=== PATIENT | female | born 1945 | race Caucasian/White ===

== ENCOUNTER 2018-08-22 18:52 | Emergency (ER) | payer BC, MEDICARE ==
--- NOTE | 2018-08-22 19:58 | Emergency Department Record ---
History of Present Illness - General Chief complaint: Abscess Stated complaint: RT ANKLE PAIN Time Seen by Provider: 08/22/18 19:42 Source: Patient Mode of Arrival: Ambulatory Limitations: No limitations - History of Present Illness Initial comments: pt has had redness and soreness of ankle for 11 days that is getting progressively worse. she went to her pcp and was told it was vascular and is scheduled to see a vascular surgeon in a week. meanwhile it is getting worse and pt is having increased pain and difficulty walking. pt had a similar episode 2 yrs ago on the same area MD complaint: Lesion, Rash Onset/Timin -: Days(s) Hx Tetanus Toxoid Vaccination: Yes Year of Tetanus Vaccination: unsure Location: LLE Severity: Moderate Severity scale (1-10): 7 Quality: Aching Consistency: Constant, Getting worse Improves with: None Worsens with: None Treatments Prior to Arrival: None - Related Data Home Medications Medication Instructions Recorded Confirmed Last Taken Darifenacin Hydrobromide 7.5 mg PO DAILY 08/22/18 08/22/18 Unknown [Darifenacin ER] Duloxetine HCl [Cymbalta] 30 mg PO DAILY 08/22/18 08/22/18 Unknown Previous Rx's Medication Instructions Recorded Amoxicillin/Potassium Clav 1 tab PO BID #20 tab 08/22/18 [Augmentin 875-125 Tablet] Hydrocodone/Acetaminophen [[place] 1 each PO Q8HR #7 tablet 08/22/18 5-325 Tablet] Allergies Allergy/AdvReac Type Severity Reaction Status Date / Time adhesive tape Allergy Intermediate RASH Verified 12/24/15 17:02 hydromorphone HCl Allergy Intermediate VOMITING Verified 12/24/15 17:02 [From Dilaudid] Gsjsjrv-Dkb-Pio Reductase Allergy Intermediate HIVES Verified 12/24/15 17:02 Inhibitor Sulfa (Sulfonamide Allergy Intermediate HIVES Verified 12/24/15 17:02 Antibiotics) clindamycin Allergy HIVES Verified 08/22/18 19:57 Travel Screening - Travel/Exposure Within Last 30 Days Have you traveled within the last 30 days?: No Review of Systems Reviewed: No additional complaints except as noted below Constitutional: Reports: As per HPI. Denies: Chills, Fever, Malaise, Night sweats, Weakness, Weight change Eyes: Reports: As per HPI. Denies: Eye discharge, Eye pain, Photophobia, Vision change ENT: Reports: As per HPI. Denies: Congestion, Dental pain, Ear pain, Epistaxis , Hearing loss, Throat pain Respiratory: Reports: As per HPI. Denies: Cough, Dyspnea, Hemoptysis, Stridor, Wheezes Cardiovascular: Reports: As per HPI. Denies: Arrhythmia, Chest pain, Dyspnea on exertion, Edema, Murmurs, Orthopnea, Palpitations, Paroxysmal nocturnal dyspnea, Rheumatic Fever, Syncope Endocrine: Reports: As per HPI. Denies: Fatigue, Heat or cold intolerance, Polydipsia, Polyuria Gastrointestinal: Reports: As per HPI. Denies: Abdominal pain, Constipation, Diarrhea, Hematemesis, Hematochezia, Melena, Nausea, Vomiting Genitourinary: Reports: As per HPI. Denies: Abnormal menses, Discharge, Dyspareunia, Dysuria, Frequency, Hematuria, Incontinence, Retention, Urgency Musculoskeletal: Reports: As per HPI. Denies: Arthralgia, Back pain, Gout, Joint swelling, Myalgia, Neck pain Skin: Reports: As per HPI. Denies: Bruising, Change in color, Change in hair/ nails, Lesions, Pruritus, Rash Neurological: Reports: As per HPI. Denies: Abnormal gait, Confusion, Headache, Numbness, Paresthesias, Seizure, Tingling, Tremors, Vertigo, Weakness Psychiatric: Reports: As per HPI. Denies: Anxiety, Auditory hallucinations, Depression, Homicidal thoughts, Suicidal thoughts, Visual hallucinations Hematological/Lymphatic: Reports: As per HPI. Denies: Anemia, Blood Clots, Easy bleeding, Easy bruising, Swollen glands Past Medical History - SOCIAL HISTORY Smoking Status: Never smoker Alcohol Use: None Drug Use: None - RESPIRATORY Hx Respiratory Disorders: No - CARDIOVASCULAR Hx Cardio Disorders: Yes Hx Irregular Heartbeat: Yes (a-) - NEURO Hx Neuro Disorders: Yes Hx CVA: Yes (2009) - GI Hx GI Disorders: Yes Hx Reflux: Yes Hx Rectal Bleeding: Yes Hx Ulcer: Yes - Hx Genitourinary Disorders: Yes Hx Bladder Problem: Yes - ENDOCRINE Hx Endocrine Disorders: Yes Hx Diabetes: No Hx Thyroid Disease: Yes - MUSCULOSKELETAL Hx Musculoskeletal Disorders: Yes Hx Arthritis: Yes - PSYCH Hx Psych Problems: No - HEMATOLOGY/ONCOLOGY Hx Hematology/Oncology Disorders: Yes Hx Anemia: Yes Hx Cancer: Yes (breast) Family Medical History Any Significant Family History?: No Physical Exam - General General Appearance: Alert, Oriented x3, Cooperative, Mild distress - Head Head exam: Normal inspection - Eye Eye exam: Normal appearance, PERRL, EOMI Pupils: Normal accommodation - ENT ENT exam: Normal exam, Mucous membranes moist, Normal external ear exam, Normal orophraynx Ear exam: Normal external inspection. negative: External canal tenderness Nasal Exam: Normal inspection. negative: Discharge, Sinus tenderness Mouth exam: Normal external inspection, Tongue normal Teeth exam: Normal inspection. negative: Dental caries Throat exam: Normal inspection. negative: Tonsillar erythema, Tonsillar exudate - Neck Neck exam: Normal inspection, Full ROM. negative: Tenderness - Respiratory Respiratory exam: Normal lung sounds bilaterally. negative: Respiratory distress - Cardiovascular Cardiovascular Exam: Regular rate, Normal rhythm, Normal heart sounds - GI/Abdominal GI/Abdominal exam: Soft, Normal bowel sounds. negative: Tenderness - Rectal Rectal exam: Deferred - exam: Deferred - Extremities Extremities exam: Normal capillary refill, Tenderness. negative: Full ROM Image of Feet: 1 - erythema, tenderness, skin breakdown - Back Back exam: Reports: Normal inspection, Full ROM. Denies: Muscle spasm, Rash noted, Tenderness - Neurological Neurological exam: Alert, CN II-XII intact, Normal gait, Oriented X3 - Psychiatric Psychiatric exam: Normal affect, Normal mood - Skin Skin exam: Dry, Intact, Normal color, Warm Course Vital Signs 08/22/18 19:12 Temperature 98.1 F Pulse Rate [ 82 Pulse Ox Probe] Respiratory 20 Rate Blood Pressure 133/82 [Right Arm] Pulse Ox 99 Medical Decision Making - Lab Data Result diagrams: 08/22/18 20:04 Disposition Disposition: Discharge Clinical Impression: Cellulitis of right ankle Disposition: Home, Self-Care Condition: (1) Good Instructions: Cellulitis (ED) Additional Instructions: follow up with family doctor tomorrow. return sooner if worse. moist heat 4 times a day. elevate. Prescriptions: Hydrocodone/Acetaminophen [[place] 5-325 Tablet] 1 each PO Q8HR #7 tablet Amoxicillin/Potassium Clav [Augmentin 875-125 Tablet] 1 tab PO BID #20 tab Forms: Patient Portal Access Quality - Quality Measures Quality Measures: N/A - Blood Pressure Screening Does Patient Have Any of the Following: No Blood Pressure Classification: Hypertensive Reading Systolic Measurement: 144 Diastolic Measurement: 69 Screening for High Blood Pressure: < First Hypertensive BP, F/U Documented > [ [id number]] First Hypertensive Follow-up Interventions: Follow-up with rescreen GT 1 day and LT 4 weeks.
[2018-08-22] MEDS ORDERED: HYDROCODONE/APAP 5/325MG TABLET PO ONE (19:59)
[2018-08-22] MEDS ORDERED: AMPICILLIN SODIUM/SULBACTAM NA 3 G in 0.9 % SODIUM CHLORIDE 100ML 100 ML IVPB ONE (19:59)
[2018-08-22 20:10] LABS: HEMATOCRIT 36.6 % (35.0-47.0); HEMOGLOBIN 11.5 gm/dl (11.6-16.0); MEAN CELL VOLUME 99.5 fl (81-97); MEAN CORPUSCULAR HGB CONC 31.4 g/dl (32-36); MEAN PLATELET VOLUME 8.2 fl (7.4-10.4); PLATELET COUNT 261 K/uL (130-400); RED BLOOD COUNT 3.68 M/uL (3.80-5.40); RED CELL DISTRIBUTION WIDTH 13.4 % (11.5-14.5); WHITE BLOOD COUNT W/O DIFF 4.2 K/uL (4.2-12.2)
[2018-08-22 20:11] LABS: MEAN CORPUSCULAR HEMOGLOBIN 31.2 pg (27-33)
--- NOTE | 2018-08-24 05:57 | RADIOLOGY REPORT ---
DATE: 08/22/2018. EXAM: RIGHT ANKLE RADIOGRAPHS. HISTORY: MEDIAL ANKLE WOUND. TECHNIQUE: Three views of the right ankle. COMPARISON: None. FINDINGS: Medial ankle soft tissue swelling. No acute fracture. No discrete osseous erosion or periosteal reaction to suggest infection. Calcaneal, Achilles, and plantar enthesophytes. Multifocal midfoot and forefoot arthrosis. IMPRESSION: 1. NONSPECIFIC MEDIAL ANKLE SOFT TISSUE SWELLING. 2. NO DEFINITE RADIOGRAPHIC EVIDENCE OF OSTEOMYELITIS. JOB NUMBER: [id number] [facility]
== END 2018-08-22 21:15 | disposition home or self-care (01) ==
LOC: ER 18:52
DX: L03.115 Cellulitis of right lower limb (principal); I48.91 Unspecified atrial fibrillation; Z86.73 Personal history of transient ischemic attack (TIA), and cerebral infarction without residual deficits
CPT/HCPCS: 99284 ×2; 96365; 85027; 73610; J0295